=== PATIENT | female | born 1980 | race Caucasian/White ===

== ENCOUNTER 2017-12-12 09:59 | Emergency (ER) | payer MEDICAID ==
[~2017-12-12] VITALS: Ht 167.6 cm; Wt 80.0 kg
[2017-12-12] MEDS ORDERED: adenosine 3mg/ml 2ml vial IV ONE ×2 (10:15)
[2017-12-12 10:19] LABS: BASOPHILS # (AUTO) 0.1 X10'3 (0-0.2); BASOPHILS % (AUTO) 0.7 % (0-1); EOSINOPHILS % (AUTO) 0.6 % (0-6); HEMOGLOBIN 13.7 g/dl (12.0-16.0); LYMPHOCYTES # (AUTO) 3.4 X10'3 (1.1-4.8); LYMPHOCYTES % (AUTO) 43.7 % (21-51); MEAN CORPUSCULAR HEMOGLOBIN 30.8 PG (27.0-31.0); MEAN CORPUSCULAR HGB CONC 34.3 % (33.0-36.5); MEAN CORPUSCULAR VOLUME 89.6 FL (78-98); MONOCYTES # (AUTO) 0.6 X10'3 (0-0.9); MONOCYTES % (AUTO) 7.2 % (2-12); NEUTROPHILS # (AUTO) 3.7 X10'3 (1.8-7.7); NEUTROPHILS % (AUTO) 47.8 % (42-75); PLATELET COUNT 420 X10'3 (140-440); RED BLOOD COUNT 4.46 X10'6 (4.20-5.60); RED CELL DISTRIBUTION WIDTH 15.1 % (11.5-14.5); WHITE BLOOD COUNT 7.8 X10'3 (4.5-11.0)
[2017-12-12] MEDS ORDERED: proCHLORperazine 10 MG/2 ml inj IV PRN (10:25)
[2017-12-12] MEDS ORDERED: LORazepam 2 mg/ml vial IV ONE (10:25)
[2017-12-12 10:29] LABS: PARTIAL THROMBOPLASTIN TIME 23 SECONDS (22-32)
[2017-12-12 10:34] LABS: ALANINE AMINOTRANSFERASE 163 U/L (12-78); ALBUMIN 3.7 G/DL (3.4-5.0); ALBUMIN/GLOBULIN RATIO 0.8 (1.1-1.5); ALKALINE PHOSPHATASE 161 IU/L (46-116); ANION GAP 14 (8-16); ASPARTATE AMINO TRANSFERASE 183 U/L (10-37); BILIRUBIN,TOTAL 0.2 MG/DL (0.1-1.0); BLOOD UREA NITROGEN 10 MG/DL (7-18); CALCIUM 8.5 MG/DL (8.5-10.1); CHLORIDE 104 MMOL/L (99-107); CREATININE 0.91 MG/DL (0.40-0.90); GLUCOSE 162 MG/DL (70-104); POTASSIUM 3.2 MMOL/L (3.5-5.1); SODIUM 144 MMOL/L (135-145); TOTAL CARBON DIOXIDE 25.9 MMOL/L (24-32); TOTAL PROTEIN 8.1 G/DL (6.4-8.2); eGFR 70 ML/MIN
[2017-12-12] MEDS ORDERED: normal saline 1000ML IV soln IVB ONE (10:45)
[2017-12-12 12:48] VITALS: BP 141/91
== END 2017-12-12 15:01 | disposition home or self-care (01) ==
LOC: ER 09:59
DX: I47.1 Supraventricular tachycardia (principal); F15.10 Other stimulant abuse, uncomplicated
CPT/HCPCS: 36415; 71045; 80053; 84484; 85025; 85610; 85730; 92960; 93005; 96361; 96374; 96375; 99285; J0153; J2060; J7030

== ENCOUNTER 2018-02-11 14:35 | Emergency (ER) | payer MEDICAID ==
[~2018-02-11] VITALS: Ht 167.6 cm; Wt 82.2 kg
[2018-02-11] MEDS ORDERED: adenosine 3mg/ml 2ml vial IV ONE (14:45)
[2018-02-11 15:11] LABS: BASOPHILS % (AUTO) 0.4 % (0-1); EOSINOPHILS # (AUTO) 0.1 X10'3 (0-0.9); EOSINOPHILS % (AUTO) 1.4 % (0-6); HEMATOCRIT 44.8 % (35.0-45.0); HEMOGLOBIN 15.1 g/dl (12.0-16.0); LYMPHOCYTES # (AUTO) 4.5 X10'3 (1.1-4.8); MEAN CORPUSCULAR HEMOGLOBIN 30.4 PG (27.0-31.0); MEAN CORPUSCULAR HGB CONC 33.8 % (33.0-36.5); MEAN CORPUSCULAR VOLUME 90.1 FL (78-98); MEAN PLATELET VOLUME 7.5 FL (7.4-10.4); MONOCYTES # (AUTO) 0.7 X10'3 (0-0.9); MONOCYTES % (AUTO) 6.7 % (2-12); NEUTROPHILS # (AUTO) 5.3 X10'3 (1.8-7.7); NEUTROPHILS % (AUTO) 49.5 % (42-75); PLATELET COUNT 525 X10'3 (140-440); RED BLOOD COUNT 4.97 X10'6 (4.20-5.60); RED CELL DISTRIBUTION WIDTH 15.6 % (11.5-14.5); WHITE BLOOD COUNT 10.6 X10'3 (4.5-11.0)
[2018-02-11] MEDS: metoprolol tartrate 1mg/ml inj IV ONE ×2 (15:18→15:28)
[2018-02-11] MEDS ORDERED: METO-539 PO (15:27)
[2018-02-11 15:29] LABS: ALANINE AMINOTRANSFERASE 124 U/L (12-78); ALBUMIN 3.8 G/DL (3.4-5.0); ALBUMIN/GLOBULIN RATIO 0.8 (1.1-1.5); ALKALINE PHOSPHATASE 133 IU/L (46-116); ANION GAP 18 (8-16); BILIRUBIN,TOTAL 0.4 MG/DL (0.1-1.0); BLOOD UREA NITROGEN 14 MG/DL (7-18); BUN/CREATININE RATIO 14.3 (6.6-38.0); CALCIUM 8.6 MG/DL (8.5-10.1); CHLORIDE 104 MMOL/L (99-107); CREATININE 0.98 MG/DL (0.40-0.90); GLUCOSE 163 MG/DL (70-104); SODIUM 141 MMOL/L (135-145); TOTAL CARBON DIOXIDE 18.6 MMOL/L (24-32); TOTAL PROTEIN 8.6 G/DL (6.4-8.2); eGFR 65 ML/MIN
[2018-02-11 15:34] LABS: ASPARTATE AMINO TRANSFERASE 112 U/L (10-37); POTASSIUM 4.1 MMOL/L (3.5-5.1)
[2018-02-11 15:56] LABS: PARTIAL THROMBOPLASTIN TIME 23 SECONDS (22-32); PROTHROMBIN TIME 10.1 SECONDS (9.0-12.0)
[2018-02-11 16:16] VITALS: BP 124/76
== END 2018-02-11 16:19 | disposition home or self-care (01) ==
LOC: ER 14:36
DX: I47.1 Supraventricular tachycardia (principal); R73.9 Hyperglycemia, unspecified; R79.89 Other specified abnormal findings of blood chemistry; F15.90 Other stimulant use, unspecified, uncomplicated; F17.200 Nicotine dependence, unspecified, uncomplicated; Z88.5 Allergy status to narcotic agent; Z79.899 Other long term (current) drug therapy
CPT/HCPCS: 36415; 71045; 80053; 84484; 85025; 85610; 85730; 93005; 96374; 96375; 99285; J0153; J3490; J7030

== ENCOUNTER 2018-05-02 18:01 | Emergency (ER) | payer MEDICAID ==
[~2018-05-02] VITALS: Ht 167.6 cm; Wt 9.0 kg
[~2018-05-02 18:01] MED LIST: NO HOME MEDS; adenosine 3mg/ml 2ml vial IV ONE
[2018-05-02 18:23] LABS: BASOPHILS % (AUTO) 0.3 % (0-1); EOSINOPHILS # (AUTO) 0.1 X10'3 (0-0.9); EOSINOPHILS % (AUTO) 1.3 % (0-6); HEMATOCRIT 45.3 % (35.0-45.0); HEMOGLOBIN 15.2 g/dl (12.0-16.0); LYMPHOCYTES % (AUTO) 45.4 % (21-51); MEAN CORPUSCULAR HEMOGLOBIN 30.9 PG (27.0-31.0); MEAN CORPUSCULAR HGB CONC 33.6 % (33.0-36.5); MEAN CORPUSCULAR VOLUME 92.2 FL (78-98); MEAN PLATELET VOLUME 7.4 FL (7.4-10.4); MONOCYTES # (AUTO) 0.8 X10'3 (0-0.9); MONOCYTES % (AUTO) 8.8 % (2-12); NEUTROPHILS # (AUTO) 3.9 X10'3 (1.8-7.7); NEUTROPHILS % (AUTO) 44.2 % (42-75); PLATELET COUNT 549 X10'3 (140-440); RED BLOOD COUNT 4.91 X10'6 (4.20-5.60); RED CELL DISTRIBUTION WIDTH 13.6 % (11.5-14.5); WHITE BLOOD COUNT 8.8 X10'3 (4.5-11.0)
[2018-05-02] MEDS ORDERED: adenosine 3mg/ml 2ml vial IV ONE (18:25)
[2018-05-02 18:34] LABS: INR 0.9 INR; PARTIAL THROMBOPLASTIN TIME 23 SECONDS (22-32); PROTHROMBIN TIME 9.7 SECONDS (9.0-12.0)
[2018-05-02 18:37] LABS: ALANINE AMINOTRANSFERASE 242 U/L (12-78); ALBUMIN 4.2 G/DL (3.4-5.0); ALBUMIN/GLOBULIN RATIO 0.9 (1.1-1.5); ALKALINE PHOSPHATASE 162 IU/L (46-116); ANION GAP 14 (8-16); ASPARTATE AMINO TRANSFERASE 199 U/L (10-37); BILIRUBIN,TOTAL 0.3 MG/DL (0.1-1.0); BLOOD UREA NITROGEN 9 MG/DL (7-18); BUN/CREATININE RATIO 8.8 (6.6-38.0); CALCIUM 9.6 MG/DL (8.5-10.1); CHLORIDE 106 MMOL/L (99-107); CREATININE 1.02 MG/DL (0.40-0.90); GLUCOSE 190 MG/DL (70-104); POTASSIUM 3.4 MMOL/L (3.5-5.1); SODIUM 146 MMOL/L (135-145); TOTAL PROTEIN 8.8 G/DL (6.4-8.2); eGFR 62 ML/MIN
[2018-05-02] MEDS ORDERED: metoprolol tartrate 1mg/ml inj IV ONE (18:55)
[2018-05-02] MEDS ORDERED: normal saline 1000ML IV soln IVB ONE (19:10)
[2018-05-02 19:27] LABS: URINE AMPHETAMINE SCREEN POSITIVE (Neg); URINE BARBITUATE SCREEN NEGATIVE (Neg); URINE BENZODIAZEPINES SCREEN NEGATIVE (Neg); URINE CANNABINOID SCREEN NEGATIVE (Neg); URINE COCAINE SCREEN NEGATIVE (Neg); URINE METHADONE SCREEN NEGATIVE (Neg); URINE OPIATE SCREEN NEGATIVE (Neg); URINE PHENCYCLIDINE SCREEN NEGATIVE (Neg)
[2018-05-02] MEDS ORDERED: PROP10TA10 PO (20:05)
[2018-05-02] MEDS ORDERED: potassium Cl 20 mEq SR tablet PO ONE (20:05)
[2018-05-02 20:40] VITALS: BP 123/80
== END 2018-05-02 20:42 | disposition home or self-care (01) ==
LOC: MERGE 18:02 → ER 18:02
DX: I47.1 Supraventricular tachycardia (principal); J45.909 Unspecified asthma, uncomplicated; F15.90 Other stimulant use, unspecified, uncomplicated; Z90.49 Acquired absence of other specified parts of digestive tract; Z88.5 Allergy status to narcotic agent; Z79.899 Other long term (current) drug therapy
CPT/HCPCS: 36415; 71045; 80053; 80305; 84484; 85025; 85610; 85730; 93005; 96361; 96374; 96375; 99285; J3490; J7030; J0153

== ENCOUNTER 2018-11-11 19:42 | Emergency (ER) | payer MEDICAID ==
[~2018-11-11] VITALS: Ht 172.7 cm; Wt 82.0 kg
[~2018-11-11 19:42] MED LIST changes: +0.9 % SODIUM CHLORIDE 10 ML VIAL ONE; -adenosine 3mg/ml 2ml vial IV ONE; +naloxone 0.4 mg/ml inj ONE
[2018-11-11] MEDS ORDERED: naloxone 2mg/2ml inj IV STA (19:47)
[2018-11-11] MEDS ORDERED: normal saline 1000ml 1,000 ML IV ONE (19:50)
[2018-11-11] MEDS ORDERED: normal saline 1000ML IV soln IVB ONE (19:55)
[2018-11-11] MEDS ORDERED: naloxone 2mg/2ml inj IV ONE (19:55)
[2018-11-11 20:23] LABS: BASOPHILS % (AUTO) 0.5 % (0-1); EOSINOPHILS # (AUTO) 0.1 X10'3 (0-0.9); EOSINOPHILS % (AUTO) 1.8 % (0-6); LYMPHOCYTES # (AUTO) 2.6 X10'3 (1.1-4.8); LYMPHOCYTES % (AUTO) 45.1 % (21-51); MEAN CORPUSCULAR HEMOGLOBIN 30.4 PG (27.0-31.0); MEAN CORPUSCULAR HGB CONC 33.4 g/dL (33.0-36.5); MEAN CORPUSCULAR VOLUME 90.8 FL (78-98); MEAN PLATELET VOLUME 7.3 FL (7.4-10.4); MONOCYTES # (AUTO) 0.4 X10'3 (0-0.9); MONOCYTES % (AUTO) 7.6 % (2-12); NEUTROPHILS # (AUTO) 2.5 X10'3 (1.8-7.7); PLATELET COUNT 286 X10'3 (140-440); RED BLOOD COUNT 3.96 X10'6 (4.20-5.60); RED CELL DISTRIBUTION WIDTH 14.1 % (11.5-14.5); WHITE BLOOD COUNT 5.7 X10'3 (4.5-11.0)
[2018-11-11 20:28] LABS: CLARITY,URINE CLEAR (Clear); COLOR,URINE YELLOW (Yellow); GLUCOSE, URINE 500 mg/dl (Neg); KETONES,URINE NEGATIVE (Neg); LEUKOCYTE ESTERASE ,URINE NEGATIVE (Neg); NITRITES, URINE NEGATIVE (Neg); OCCULT BLOOD,URINE NEGATIVE (Neg); PROTEIN,URINE NEGATIVE (Neg); UROBILINOGEN,URINE 0.2 E.U/dL (0.2-1.0)
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
--- NOTE | 2018-11-11 20:33 | NUR ---
DR ZARAGOZAFS IN ROOM AND AMMONIA BROKE UNDER NOSE AND PATIENT WOKE UP. PATIENT ADMITS TO DRINKING TODAY BUT STATES THAT SHE QUIT DRUGS LAST WEEK. STATES THAT SHE LAST SNORTED CRANK WHEN [place]. SHE STATES THAT SHE HAS BEEN OFF METH SINCE STAYING AT HER PARENTS HOUSE.
[2018-11-11 20:36] LABS: PARTIAL THROMBOPLASTIN TIME < 20 SECONDS (22-32); PROTHROMBIN TIME 10.1 SECONDS (9.0-12.0)
[2018-11-11 20:39] LABS: ALANINE AMINOTRANSFERASE 179 U/L (12-78); ALBUMIN 3.4 G/DL (3.4-5.0); ALBUMIN/GLOBULIN RATIO 0.9 (1.1-1.5); ALKALINE PHOSPHATASE 178 IU/L (46-116); ANION GAP 16 (8-16); ASPARTATE AMINO TRANSFERASE 173 U/L (10-37); BILIRUBIN,TOTAL 0.2 MG/DL (0.1-1.0); BLOOD UREA NITROGEN 5 MG/DL (7-18); BUN/CREATININE RATIO 6.7 (6.6-38.0); CALCIUM 8.4 MG/DL (8.5-10.1); CHLORIDE 103 MMOL/L (99-107); CREATININE 0.75 MG/DL (0.40-0.90); ETHANOL 0.275 GM/DL (0.0-0.010); GLUCOSE 274 MG/DL (70-104); POTASSIUM 3.4 MMOL/L (3.5-5.1); SODIUM 139 MMOL/L (135-145); TOTAL CARBON DIOXIDE 20.3 MMOL/L (24-32); TOTAL PROTEIN 7.4 G/DL (6.4-8.2); eGFR 88 ML/MIN
[2018-11-11 20:40] LABS: URINE AMPHETAMINE SCREEN NEGATIVE (Neg); URINE BARBITUATE SCREEN NEGATIVE (Neg); URINE BENZODIAZEPINES SCREEN NEGATIVE (Neg); URINE CANNABINOID SCREEN NEGATIVE (Neg); URINE COCAINE SCREEN NEGATIVE (Neg); URINE METHADONE SCREEN NEGATIVE (Neg); URINE OPIATE SCREEN NEGATIVE (Neg); URINE PHENCYCLIDINE SCREEN NEGATIVE (Neg)
[2018-11-11 20:41] LABS: UA COLLECTION TYPE CLN CATCH MIDSTREAM
--- NOTE | 2018-11-11 20:45 | NUR ---
PATIENT AXOX4 SHANNEN, DENIES PAIN
[2018-11-11 21:00] VITALS: BP 139/77
== END 2018-11-11 21:35 | disposition home or self-care (01) ==
LOC: ER 19:42
DX: F10.129 Alcohol abuse with intoxication, unspecified (principal); F15.90 Other stimulant use, unspecified, uncomplicated; Z88.5 Allergy status to narcotic agent; Y90.9 Presence of alcohol in blood, level not specified
CPT/HCPCS: 36415; 71045; 80053; 80305; 80320; 81003; 82140; 82948; 85025; 85610; 85730; 93005; 96374; 99284; J2310; J7030

== ENCOUNTER 2019-04-19 15:25 | Emergency (ER) | payer MEDICAID ==
[~2019-04-19] VITALS: Ht 167.6 cm; Wt 90.9 kg
[~2019-04-19 15:25] MED LIST changes: -0.9 % SODIUM CHLORIDE 10 ML VIAL ONE; -naloxone 0.4 mg/ml inj ONE
[2019-04-19] MEDS ORDERED: adenosine 3mg/ml 2ml vial IV ONE (15:35)
[2019-04-19] MEDS ORDERED: LORazepam 2 mg/ml vial IV ONE (15:50)
[2019-04-19 15:53] LABS: BASOPHILS % (AUTO) 0.6 % (0-1); EOSINOPHILS # (AUTO) 0.1 X10'3 (0-0.9); HEMOGLOBIN 13.1 g/dl (12.0-16.0); LYMPHOCYTES # (AUTO) 2.6 X10'3 (1.1-4.8); MEAN CORPUSCULAR HEMOGLOBIN 28.7 PG (27.0-31.0); MEAN CORPUSCULAR HGB CONC 32.6 g/dL (33.0-36.5); MEAN PLATELET VOLUME 7.3 FL (7.4-10.4); MONOCYTES # (AUTO) 0.5 X10'3 (0-0.9); MONOCYTES % (AUTO) 7.7 % (2-12); NEUTROPHILS # (AUTO) 3.2 X10'3 (1.8-7.7); NEUTROPHILS % (AUTO) 49.7 % (42-75); PLATELET COUNT 362 X10'3 (140-440); RED BLOOD COUNT 4.55 X10'6 (4.20-5.60); RED CELL DISTRIBUTION WIDTH 16.6 % (11.5-14.5); WHITE BLOOD COUNT 6.4 X10'3 (4.5-11.0)
[2019-04-19 16:13] LABS: ALANINE AMINOTRANSFERASE 352 U/L (12-78); ALBUMIN 4.1 G/DL (3.4-5.0); ALBUMIN/GLOBULIN RATIO 0.8 (1.1-1.5); ALKALINE PHOSPHATASE 221 IU/L (46-116); ANION GAP 18 (8-16); ASPARTATE AMINO TRANSFERASE 344 U/L (10-37); BILIRUBIN,TOTAL 0.6 MG/DL (0.1-1.0); BLOOD UREA NITROGEN 4 MG/DL (7-18); BUN/CREATININE RATIO 4.1 (6.6-38.0); CALCIUM 9.4 MG/DL (8.5-10.1); CHLORIDE 95 MMOL/L (99-107); CREATININE 0.97 MG/DL (0.40-0.90); MAGNESIUM 2.2 MG/DL (1.5-2.4); POTASSIUM 3.1 MMOL/L (3.5-5.1); SODIUM 137 MMOL/L (135-145); TOTAL CARBON DIOXIDE 23.8 MMOL/L (24-32); TOTAL PROTEIN 9.2 G/DL (6.4-8.2); eGFR 65 ML/MIN
[2019-04-19 16:14] LABS: GLUCOSE 563 MG/DL (70-104)
[2019-04-19] MEDS ORDERED: normal saline 1000ML IV soln IVB ONE (16:20)
[2019-04-19] MEDS ORDERED: metoprolol tartrate 1mg/ml inj IV ONE (17:30)
[2019-04-19 17:57] VITALS: BP 124/74
== END 2019-04-19 17:58 | disposition home or self-care (01) ==
LOC: EDBD → ER 15:26
DX: I47.1 Supraventricular tachycardia (principal); F15.10 Other stimulant abuse, uncomplicated; E87.6 Hypokalemia; E86.0 Dehydration; R42 Dizziness and giddiness; R73.9 Hyperglycemia, unspecified; F10.99 Alcohol use, unspecified with unspecified alcohol-induced disorder; Z88.5 Allergy status to narcotic agent; Y90.9 Presence of alcohol in blood, level not specified
CPT/HCPCS: 36415; 71045; 80053; 83735; 83880; 84484; 85025; 93005; 96374; 96375; 99291; J0153; J2060; J7030; J3490

== ENCOUNTER 2019-05-09 18:09 | Inpatient (IN) | payer MEDICAID ==
[~2019-05-09] VITALS: Ht 167.6 cm; Wt 98.0 kg
[2019-05-09] MEDS ORDERED: normal saline 1000ML IV soln IVB ONE (18:25)
--- NOTE | 2019-05-09 18:47 | NUR ---
Patient asleep, can be woken up but it is difficult. Vitals are stable, patient O2 sat 89 on RA, place NC @ 1L patient O2 sat 94% at this time
[2019-05-09 18:52] LABS: BASOPHILS % (AUTO) 0.4 % (0-1); EOSINOPHILS # (AUTO) 0.1 X10'3 (0-0.9); EOSINOPHILS % (AUTO) 1.2 % (0-6); HEMATOCRIT 34.4 % (35.0-45.0); HEMOGLOBIN 11.3 g/dl (12.0-16.0); LYMPHOCYTES # (AUTO) 2.7 X10'3 (1.1-4.8); LYMPHOCYTES % (AUTO) 37.8 % (21-51); MEAN CORPUSCULAR HEMOGLOBIN 28.7 PG (27.0-31.0); MEAN CORPUSCULAR HGB CONC 32.9 g/dL (33.0-36.5); MEAN CORPUSCULAR VOLUME 87.3 FL (78-98); MEAN PLATELET VOLUME 6.8 FL (7.4-10.4); MONOCYTES # (AUTO) 0.5 X10'3 (0-0.9); MONOCYTES % (AUTO) 6.3 % (2-12); NEUTROPHILS # (AUTO) 3.9 X10'3 (1.8-7.7); NEUTROPHILS % (AUTO) 54.3 % (42-75); PLATELET COUNT 355 X10'3 (140-440); RED BLOOD COUNT 3.94 X10'6 (4.20-5.60); WHITE BLOOD COUNT 7.1 X10'3 (4.5-11.0)
[2019-05-09 19:02] LABS: ALANINE AMINOTRANSFERASE 301 U/L (12-78); ALBUMIN 3.9 G/DL (3.4-5.0); ALBUMIN/GLOBULIN RATIO 0.8 (1.1-1.5); ALKALINE PHOSPHATASE 243 IU/L (46-116); ANION GAP 20 (8-16); ASPARTATE AMINO TRANSFERASE 373 U/L (10-37); BILIRUBIN,TOTAL 0.6 MG/DL (0.1-1.0); BLOOD UREA NITROGEN 4 MG/DL (7-18); CALCIUM 8.9 MG/DL (8.5-10.1); CHLORIDE 94 MMOL/L (99-107); SODIUM 135 MMOL/L (135-145); TOTAL PROTEIN 9.1 G/DL (6.4-8.2); eGFR 81 ML/MIN
[2019-05-09 19:26] LABS: ETHANOL 0.312 GM/DL (0.0-0.010)
[2019-05-09 19:29] LABS: GLUCOSE 586 MG/DL (70-104); POTASSIUM 2.9 MMOL/L (3.5-5.1)
[2019-05-09] MEDS ORDERED: potassium Cl 10 mEq/100mL bag IV ONE (20:00)
[2019-05-09] MEDS ORDERED: ringers solution, lactated 1000ml IV soln IV ONE (20:00)
[2019-05-09] MEDS ORDERED: magnesium 2GM in 50ml NS 50 ML IV ONE (20:00)
[2019-05-09 20:03] LABS: URINE AMPHETAMINE SCREEN NEGATIVE (Neg); URINE BARBITUATE SCREEN NEGATIVE (Neg); URINE BENZODIAZEPINES SCREEN NEGATIVE (Neg); URINE CANNABINOID SCREEN NEGATIVE (Neg); URINE COCAINE SCREEN NEGATIVE (Neg); URINE METHADONE SCREEN NEGATIVE (Neg); URINE OPIATE SCREEN NEGATIVE (Neg); URINE PHENCYCLIDINE SCREEN NEGATIVE (Neg)
[2019-05-09 20:18] LABS: MAGNESIUM 1.9 MG/DL (1.5-2.4)
[2019-05-09] MEDS ORDERED: acetaminophen 325mg tablet PO PRN (22:10)
[2019-05-09] MEDS ORDERED: magnesium hydroxide 30ml (MOM) UD suspension PO PRN (22:10)
[2019-05-09] MEDS ORDERED: mag hydrox/Alum hydrox/simeth 30ml oral suspension PO PRN (22:10)
[2019-05-09] MEDS ORDERED: thiamine inj. 100 MG in normal saline 100ml IV soln 100 ML IV ONE (22:15)
[2019-05-09] MEDS ORDERED: thiamine 100mg/ml 2ml inj. IV ONE (22:20)
--- NOTE | 2019-05-09 23:15 | NUR ---
Patient in room [facility]ILY[facility] 356. I have received report from Jose SANTOS and had the opportunity to ask questions and assume patient care. Patient arrived safely on the unit in the wheelchair and transferred herself to be. She is alert and oriented and is resting with no distress.
[2019-05-09] MEDS: gabapentin 100mg capsule PO SCH (23:45)
[2019-05-09] MEDS: pantoprazole 40 MG vial IV SCH (23:45)
[2019-05-09] MEDS: normal saline 1000ml 1,000 ML IV SCH (23:46)
[2019-05-10] MEDS ORDERED: dextrose 50%-water 50ml dispensing syringe IV PRN ×2 (00:20)
[2019-05-10] MEDS ORDERED: glucagon, human recombinant 1mg kit SUBCUT PRN (00:20)
[2019-05-10] MEDS ORDERED: MESSAGE TO PHARMACY PO ONE (00:20)
[2019-05-10] MEDS ORDERED: dextrose ORAL solution 15 GM/59 ML bottle PO PRN ×2 (00:20)
[2019-05-10] MEDS: insulin Lispro (HumaLOG) vial - multi-dose SQ SCH ×5 (01:40→21:06)
[2019-05-10 06:09] LABS: BASOPHILS % (AUTO) 0.5 % (0-1); EOSINOPHILS % (AUTO) 1.1 % (0-6); HEMATOCRIT 28.7 % (35.0-45.0); HEMOGLOBIN 9.5 g/dl (12.0-16.0); LYMPHOCYTES % (AUTO) 36.6 % (21-51); MEAN CORPUSCULAR HEMOGLOBIN 28.4 PG (27.0-31.0); MEAN CORPUSCULAR HGB CONC 32.9 g/dL (33.0-36.5); MEAN CORPUSCULAR VOLUME 86.1 FL (78-98); MEAN PLATELET VOLUME 6.9 FL (7.4-10.4); MONOCYTES # (AUTO) 0.2 X10'3 (0-0.9); MONOCYTES % (AUTO) 7.7 % (2-12); NEUTROPHILS # (AUTO) 1.5 X10'3 (1.8-7.7); NEUTROPHILS % (AUTO) 54.1 % (42-75); PLATELET COUNT 221 X10'3 (140-440); RED BLOOD COUNT 3.34 X10'6 (4.20-5.60); RED CELL DISTRIBUTION WIDTH 16.1 % (11.5-14.5); WHITE BLOOD COUNT 2.9 X10'3 (4.5-11.0)
--- NOTE | 2019-05-10 06:22 | NUR ---
Problems reprioritized. Patient report given, questions answered & plan of care reviewed with Evi SANTOS.
[2019-05-10 06:28] LABS: ALANINE AMINOTRANSFERASE 222 U/L (12-78); ALBUMIN 3.2 G/DL (3.4-5.0); ALBUMIN/GLOBULIN RATIO 0.8 (1.1-1.5); ALKALINE PHOSPHATASE 189 IU/L (46-116); AMYLASE 31 U/L (25-115); ANION GAP 12 (8-16); ASPARTATE AMINO TRANSFERASE 264 U/L (10-37); BILIRUBIN,TOTAL 0.5 MG/DL (0.1-1.0); BLOOD UREA NITROGEN 2 MG/DL (7-18); BUN/CREATININE RATIO 3.4 (6.6-38.0); CALCIUM 7.6 MG/DL (8.5-10.1); CHLORIDE 101 MMOL/L (99-107); CREATININE 0.58 MG/DL (0.40-0.90); GLUCOSE 257 MG/DL (70-104); LIPASE 75 U/L (73-393); MAGNESIUM 1.5 MG/DL (1.5-2.4); SODIUM 139 MMOL/L (135-145); TOTAL CARBON DIOXIDE 26.1 MMOL/L (24-32); TOTAL PROTEIN 7.4 G/DL (6.4-8.2); eGFR > 90 ML/MIN
[2019-05-10 06:33] LABS: POTASSIUM 2.9 MMOL/L (3.5-5.1)
--- NOTE | 2019-05-10 06:33 | NUR ---
Patient in room [facility] 356. I have received report from Katina and had the opportunity to ask questions and assume patient care.
[2019-05-10 06:50] LABS: TOTAL CELLS COUNTED 100
[2019-05-10 06:54] LABS: ANISOCYTOSIS 1+; PLATELET ESTIMATE NORMAL; POLYCHROMASIA FEW
[2019-05-10 06:55] LABS: TEAR DROP CELLS FEW
[2019-05-10 06:56] LABS: STOMATOCYTES 1+
[2019-05-10 07:00] VITALS: BP 146/92
[2019-05-10] MEDS: thiamine inj. 100 MG, folic acid inj. 2 MG in normal saline 100ml IV soln 100.0 ML IV SCH (08:00)
[2019-05-10] MEDS: pantoprazole 40 MG vial IV SCH (08:00)
[2019-05-10] MEDS: normal saline 1000ml 1,000 ML IV SCH ×2 (08:09→17:00)
[2019-05-10] MEDS ORDERED: potassium CL 10mEq/100ml bag 100 ML IV PRN (08:10)
[2019-05-10] MEDS ORDERED: potassium Cl 20 mEq SR tablet PO PRN (08:10)
[2019-05-10] MEDS ORDERED: magnesium Cl slow-release 64mg tablet PO PRN (08:10)
[2019-05-10] MEDS ORDERED: magnesium 4gm in 100ml NS 100 ML IV PRN (08:10)
[2019-05-10] MEDS ORDERED: magnesium 2GM in 50ml NS 50 ML IV PRN (08:10)
[2019-05-10] MEDS: gabapentin 100mg capsule PO SCH ×3 (08:57→23:44)
[2019-05-10] MEDS ORDERED: FLU VACC QS2019-20 36MOS UP/PF 60 MCG/0.5 ML SYRINGE IMVAC ONE (10:00)
[2019-05-10] MEDS: potassium Cl 20 mEq SR tablet PO PRN ×2 (10:20→13:34)
[2019-05-10] MEDS: MVI, adult No.4 with vit. K 10 ML in dextrose 5% water 500ml 500 ML IV SCH ×2 (10:35)
[2019-05-10 11:00] VITALS: BP 115/70
[2019-05-10 17:15] LABS: MAGNESIUM 1.7 MG/DL (1.5-2.4); POTASSIUM 3.4 MMOL/L (3.5-5.1)
--- NOTE | 2019-05-10 17:24 | NUR ---
Malnutrition/DM Consults: Pt admit w/ etoh intoxication; etoh 0.312 and GLU 586 on admit. Hx prior meth use none currently per EMR. DX etoh hepatitis per MD. A1C 10.1 on admit; pt has no prior DM hx. Per RN; unsure if new DM vs etoh-related since drinks plenty of sugary etoh drinks per MD. Pt seen by RD and reports MD discussed GLU w/ her but not official DM DX. Cannot provide DM ed until pt receives official DM DX. RD did provide contact information and educated pt on thiamin/MVI needs r/t etoh use. Pt receiving banana bag for etoh on protocol and does report some tingling in fingers as well. PO 50% avg clear liquids now advanced to carb controlled diet starting at dinner tonight. LBM 05/07. Pt has no visible signs of muscle/fat wasting, normal strength, and current wt has no recorded method. At this time pt does not meet malnutrition criteria. Will monitor for official DM DX and new DM ed needs as appropriate. Rec: 1. continue carb controlled diet 2. monitor for ONS needs pending PO 3. DM ed following official DM DX as prior to d/c 4. thiamin/folic/MVI given etoh hx 5. wt per rx Addendum: 05/10/19 at [address] Amended: Links added.
--- NOTE | 2019-05-10 18:13 | NUR ---
Problems reprioritized. Patient report given, questions answered & plan of care reviewed with DANIELLE Mauricio.
[2019-05-10 18:50] VITALS: BP 148/89
[2019-05-10] MEDS ORDERED: LORazepam 1 MG tablet PO ONE (21:00)
[2019-05-10] MEDS: LORazepam 2 mg/ml vial IV PRN (23:44)
[2019-05-11] VITALS: BP 123/75
[2019-05-11] MEDS: normal saline 1000ml 1,000 ML IV SCH ×3 (04:47→23:50)
[2019-05-11 06:14] LABS: BASOPHILS % (AUTO) 0.5 % (0-1); EOSINOPHILS % (AUTO) 1.3 % (0-6); HEMATOCRIT 27.5 % (35.0-45.0); HEMOGLOBIN 9.1 g/dl (12.0-16.0); LYMPHOCYTES # (AUTO) 0.8 X10'3 (1.1-4.8); LYMPHOCYTES % (AUTO) 33.7 % (21-51); MEAN CORPUSCULAR HEMOGLOBIN 28.9 PG (27.0-31.0); MEAN CORPUSCULAR HGB CONC 33.2 g/dL (33.0-36.5); MEAN CORPUSCULAR VOLUME 87.2 FL (78-98); MONOCYTES # (AUTO) 0.2 X10'3 (0-0.9); MONOCYTES % (AUTO) 7.8 % (2-12); NEUTROPHILS # (AUTO) 1.4 X10'3 (1.8-7.7); NEUTROPHILS % (AUTO) 56.7 % (42-75); PLATELET COUNT 200 X10'3 (140-440); RED BLOOD COUNT 3.15 X10'6 (4.20-5.60); RED CELL DISTRIBUTION WIDTH 16.2 % (11.5-14.5); WHITE BLOOD COUNT 2.5 X10'3 (4.5-11.0)
--- NOTE | 2019-05-11 06:30 | NUR ---
Patient in room [facility] 356. I have received report from night RN and had the opportunity to ask questions and assume patient care.
--- NOTE | 2019-05-11 06:33 | NUR ---
Problems reprioritized. Patient report given, questions answered & plan of care reviewed with Asha. Addendum: 05/11/19 at 0634 by Wild Lawrence RN Amended: Links added.
[2019-05-11 06:40] LABS: ALANINE AMINOTRANSFERASE 182 U/L (12-78); ALBUMIN 3.2 G/DL (3.4-5.0); ALBUMIN/GLOBULIN RATIO 0.8 (1.1-1.5); ALKALINE PHOSPHATASE 183 IU/L (46-116); AMYLASE 25 U/L (25-115); ANION GAP 10 (8-16); ASPARTATE AMINO TRANSFERASE 199 U/L (10-37); BILIRUBIN,TOTAL 0.8 MG/DL (0.1-1.0); BLOOD UREA NITROGEN 1 MG/DL (7-18); BUN/CREATININE RATIO 1.8 (6.6-38.0); CALCIUM 8.1 MG/DL (8.5-10.1); CHLORIDE 107 MMOL/L (99-107); CREATININE 0.57 MG/DL (0.40-0.90); GLUCOSE 200 MG/DL (70-104); LIPASE < 50 U/L (73-393); MAGNESIUM 2.2 MG/DL (1.5-2.4); POTASSIUM 3.1 MMOL/L (3.5-5.1); SODIUM 143 MMOL/L (135-145); TOTAL CARBON DIOXIDE 26.1 MMOL/L (24-32); TOTAL PROTEIN 7.3 G/DL (6.4-8.2); eGFR > 90 ML/MIN
[2019-05-11 07:10] VITALS: BP 137/86
[2019-05-11 07:17] LABS: TOTAL CELLS COUNTED 100
[2019-05-11 07:18] LABS: ANISOCYTOSIS 1+; PLATELET ESTIMATE NORMAL
[2019-05-11] MEDS: pantoprazole 40 MG vial IV SCH (08:04)
[2019-05-11] MEDS: thiamine inj. 100 MG, folic acid inj. 2 MG in normal saline 100ml IV soln 100.0 ML IV SCH (08:05)
[2019-05-11] MEDS: gabapentin 100mg capsule PO SCH ×3 (08:15→23:50)
[2019-05-11] MEDS: potassium Cl 20 mEq SR tablet PO PRN ×3 (08:15→17:08)
[2019-05-11] MEDS: MVI, adult No.4 with vit. K 10 ML in dextrose 5% water 500ml 500 ML IV SCH ×2 (08:17)
[2019-05-11] MEDS: insulin Lispro (HumaLOG) vial - multi-dose SQ SCH ×3 (08:21→19:36)
[2019-05-11 11:27] VITALS: BP 125/73
--- NOTE | 2019-05-11 11:57 | NUR ---
Student Medication Administration: For this medication-pass time frame, all medication were reviewed, dispensed, administered and documented per hospital policy by Rylie nursing education specialist.
--- NOTE | 2019-05-11 12:00 | NUR ---
Problems reprioritized. Patient report given, questions answered & plan of care reviewed with nursing students Keke and Hung.
[2019-05-11] MEDS: ondansetron/PF 4mg/2ml inj IV PRN ×2 (16:46→23:56)
[2019-05-11] MEDS: LORazepam 2 mg/ml vial IV PRN (16:46)
--- NOTE | 2019-05-11 17:13 | NUR ---
Problems reprioritized. Patient report given, questions answered & plan of care reviewed with DANIELLE Bernardo. Addendum: 05/11/19 at 1810 by Asha Ramos RN Problems reprioritized. Patient report given, questions answered & plan of care reviewed with DANIELLE Mauricio.
[2019-05-11 18:50] VITALS: BP 120/72
[2019-05-11] MEDS ORDERED: LORazepam 2 mg/ml vial IV PRN (22:15)
[2019-05-12] VITALS: BP 136/94
[2019-05-12 05:45] LABS: BASOPHILS % (AUTO) 0.8 % (0-1); EOSINOPHILS # (AUTO) 0.1 X10'3 (0-0.9); EOSINOPHILS % (AUTO) 2.5 % (0-6); HEMATOCRIT 27.1 % (35.0-45.0); LYMPHOCYTES # (AUTO) 0.9 X10'3 (1.1-4.8); LYMPHOCYTES % (AUTO) 30.7 % (21-51); MEAN CORPUSCULAR HGB CONC 33.2 g/dL (33.0-36.5); MEAN CORPUSCULAR VOLUME 87.2 FL (78-98); MEAN PLATELET VOLUME 7.1 FL (7.4-10.4); MONOCYTES # (AUTO) 0.3 X10'3 (0-0.9); MONOCYTES % (AUTO) 9.1 % (2-12); NEUTROPHILS # (AUTO) 1.7 X10'3 (1.8-7.7); NEUTROPHILS % (AUTO) 56.9 % (42-75); PLATELET COUNT 211 X10'3 (140-440); RED CELL DISTRIBUTION WIDTH 16.4 % (11.5-14.5)
--- NOTE | 2019-05-12 06:29 | NUR ---
Problems reprioritized. Patient report given, questions answered & plan of care reviewed with LUIS. Addendum: 05/12/19 at 0629 by Wild Lawrence RN Amended: Links added.
[2019-05-12 06:30] LABS: ALANINE AMINOTRANSFERASE 160 U/L (12-78); ALBUMIN 3.1 G/DL (3.4-5.0); ALBUMIN/GLOBULIN RATIO 0.8 (1.1-1.5); ALKALINE PHOSPHATASE 183 IU/L (46-116); AMYLASE 26 U/L (25-115); ANION GAP 11 (8-16); ASPARTATE AMINO TRANSFERASE 154 U/L (10-37); BILIRUBIN,TOTAL 0.7 MG/DL (0.1-1.0); BLOOD UREA NITROGEN 2 MG/DL (7-18); BUN/CREATININE RATIO 3.4 (6.6-38.0); CALCIUM 8.4 MG/DL (8.5-10.1); CHLORIDE 108 MMOL/L (99-107); CHOL/HDL RATIO 13.8 (0.00-4.99); CHOLESTEROL 275 MG/DL (0-200); CREATININE 0.59 MG/DL (0.40-0.90); GLUCOSE 153 MG/DL (70-104); HDL CHOLESTEROL 20 MG/DL (35-60); LDL CHOLESTEROL 227 MG/DL (50-100); LIPASE 55 U/L (73-393); MAGNESIUM 2.1 MG/DL (1.5-2.4); POTASSIUM 3.7 MMOL/L (3.5-5.1); SODIUM 143 MMOL/L (135-145); TOTAL CARBON DIOXIDE 23.9 MMOL/L (24-32); TOTAL PROTEIN 7.2 G/DL (6.4-8.2); TRIGLYCERIDES 200 MG/DL (20-135); eGFR > 90 ML/MIN
--- NOTE | 2019-05-12 06:30 | NUR ---
Patient in room [facility] 356. I have received report from Ganga SANTOS and had the opportunity to ask questions and assume patient care.
--- NOTE | 2019-05-12 06:40 | NUR ---
Patient in room [facility] 356. I have received report from DANIELLE THAKUR and had the opportunity to ask questions and assume patient care.
[2019-05-12 06:49] LABS: ANISOCYTOSIS 1+; PLATELET ESTIMATE NORMAL; TOTAL CELLS COUNTED 100
[2019-05-12] MEDS: pantoprazole 40mg Tablet.DR PO SCH (07:02)
[2019-05-12] MEDS: gabapentin 100mg capsule PO SCH ×2 (07:09→17:17)
[2019-05-12] MEDS: thiamine 100mg tablet PO SCH (07:09)
[2019-05-12] MEDS: folic acid 1mg tablet PO SCH (07:09)
[2019-05-12] MEDS: multivitamins, therapeutics tablet PO SCH (07:09)
[2019-05-12] MEDS: LORazepam 1 MG tablet PO PRN ×4 (07:10→19:18)
[2019-05-12 07:15] VITALS: BP_SYST 118; BP_SYST 63; BP_DIAS 63
[2019-05-12 08:17] LABS: HBSAG SCREEN Negative (Negative); HEP A AB, IGM Negative (Negative); HEP B CORE AB, IGM Negative (Negative); HEPATITIS C ANTIBODY 0.1 s/co ratio (0.0-0.9)
[2019-05-12] MEDS: insulin Lispro (HumaLOG) vial - multi-dose SQ SCH ×3 (08:30→19:28)
[2019-05-12] MEDS: normal saline 1000ml 1,000 ML IV SCH ×2 (09:53→19:18)
[2019-05-12 11:24] VITALS: BP 135/61
--- NOTE | 2019-05-12 11:52 | NUR ---
Gave care back to Ganga SANTOS
--- NOTE | 2019-05-12 11:59 | NUR ---
Student documentation: I have reviewed and agree with all interventions, assessments performed and documented by Bing, nursing home manager.
--- NOTE | 2019-05-12 11:59 | NUR ---
Student Medication Administration: For this medication-pass time frame, all medication were reviewed, dispensed, administered and documented per hospital policy by Bing assistant professor of nursing.
--- NOTE | 2019-05-12 12:26 | NUR ---
F/u: Pt aware of new DM DX at this time. Pt seen by RD for written/verbal DM ed w/ RD contact information provided. Pt reports no current diet concerns. RD encouraged to attend CDE course and contact RD both during admit or following d/c if any DM diet questions/concerns. Addendum: 05/12/19 at [address] Amended: Links added.
--- NOTE | 2019-05-12 18:42 | NUR ---
Problems reprioritized. Patient report given, questions answered & plan of care reviewed with DANIELLE BAL.
[2019-05-12] MEDS: ondansetron/PF 4mg/2ml inj IV PRN (19:18)
[2019-05-12 20:00] VITALS: BP_SYST 138; BP_SYST 151; BP_DIAS 86; BP_DIAS 90
[2019-05-13] VITALS: BP 131/86
[2019-05-13] MEDS: gabapentin 100mg capsule PO SCH ×3 (00:35→17:23)
[2019-05-13 05:03] LABS: BASOPHILS % (AUTO) 0.4 % (0-1); EOSINOPHILS # (AUTO) 0.1 X10'3 (0-0.9); EOSINOPHILS % (AUTO) 2.4 % (0-6); HEMATOCRIT 27.9 % (35.0-45.0); LYMPHOCYTES % (AUTO) 27.4 % (21-51); MEAN CORPUSCULAR HEMOGLOBIN 28.6 PG (27.0-31.0); MEAN CORPUSCULAR HGB CONC 32.2 g/dL (33.0-36.5); MEAN CORPUSCULAR VOLUME 88.8 FL (78-98); MEAN PLATELET VOLUME 7.1 FL (7.4-10.4); MONOCYTES # (AUTO) 0.4 X10'3 (0-0.9); MONOCYTES % (AUTO) 9.6 % (2-12); NEUTROPHILS # (AUTO) 2.3 X10'3 (1.8-7.7); NEUTROPHILS % (AUTO) 60.2 % (42-75); PLATELET COUNT 228 X10'3 (140-440); RED BLOOD COUNT 3.14 X10'6 (4.20-5.60); RED CELL DISTRIBUTION WIDTH 16.5 % (11.5-14.5); WHITE BLOOD COUNT 3.8 X10'3 (4.5-11.0)
[2019-05-13 05:35] LABS: ALANINE AMINOTRANSFERASE 133 U/L (12-78); ALBUMIN/GLOBULIN RATIO 0.7 (1.1-1.5); ALKALINE PHOSPHATASE 183 IU/L (46-116); AMYLASE 33 U/L (25-115); ANION GAP 10 (8-16); ASPARTATE AMINO TRANSFERASE 129 U/L (10-37); BILIRUBIN,TOTAL 0.8 MG/DL (0.1-1.0); BLOOD UREA NITROGEN 4 MG/DL (7-18); BUN/CREATININE RATIO 6.8 (6.6-38.0); CALCIUM 8.7 MG/DL (8.5-10.1); CHLORIDE 106 MMOL/L (99-107); CREATININE 0.59 MG/DL (0.40-0.90); GLUCOSE 137 MG/DL (70-104); LIPASE 71 U/L (73-393); MAGNESIUM 1.8 MG/DL (1.5-2.4); POTASSIUM 3.5 MMOL/L (3.5-5.1); SODIUM 141 MMOL/L (135-145); TOTAL CARBON DIOXIDE 25.4 MMOL/L (24-32); TOTAL PROTEIN 7.2 G/DL (6.4-8.2); eGFR > 90 ML/MIN
--- NOTE | 2019-05-13 06:07 | NUR ---
Problems reprioritized. Patient report given, questions answered & plan of care reviewed with DANIELLE Schuler.
[2019-05-13] MEDS: normal saline 1000ml 1,000 ML IV SCH ×3 (06:09→17:23)
--- NOTE | 2019-05-13 06:30 | NUR ---
Patient in room [facility] 340. I have received report from DANIELLE BAL and had the opportunity to ask questions and assume patient care.
--- NOTE | 2019-05-13 06:48 | NUR ---
Received report from Jannie Schuler RN. My nurse had already received report by the time I got on the floor, so she just gave me report on my specific patient.
[2019-05-13] MEDS: pantoprazole 40mg Tablet.DR PO SCH (07:10)
[2019-05-13] MEDS: folic acid 1mg tablet PO SCH (07:11)
[2019-05-13] MEDS: thiamine 100mg tablet PO SCH (07:12)
[2019-05-13] MEDS: LORazepam 1 MG tablet PO PRN ×3 (07:12→18:58)
[2019-05-13] MEDS: multivitamins, therapeutics tablet PO SCH (07:12)
[2019-05-13] MEDS: ondansetron/PF 4mg/2ml inj IV PRN (07:16)
[2019-05-13 07:30] VITALS: BP 143/94
[2019-05-13] MEDS: insulin Lispro (HumaLOG) vial - multi-dose SQ SCH ×3 (09:02→18:49)
[2019-05-13 10:26] VITALS: BP 140/82
[2019-05-13] MEDS ORDERED: proCHLORperazine 10 MG/2 ml inj IV PRN (11:10)
[2019-05-13 14:46] VITALS: BP 129/90
--- NOTE | 2019-05-13 18:13 | NUR ---
Problems reprioritized. Patient report given, questions answered & plan of care reviewed with DANIELLE Palmer.
--- NOTE | 2019-05-13 18:17 | NUR ---
Receieved report from Ganga SANTOS pt is awake and alert on RA, eating dinner, in no apparent distress
[2019-05-13 19:00] VITALS: BP 147/102
[2019-05-14 00:09] VITALS: BP 135/89
[2019-05-14] MEDS: gabapentin 100mg capsule PO SCH ×2 (00:40→07:43)
[2019-05-14] MEDS ORDERED: Melatonin 3mg tablet PO SCH (01:00)
[2019-05-14] MEDS: normal saline 1000ml 1,000 ML IV SCH (01:49)
[2019-05-14 05:08] LABS: BASOPHILS % (AUTO) 0.5 % (0-1); EOSINOPHILS # (AUTO) 0.1 X10'3 (0-0.9); EOSINOPHILS % (AUTO) 2.7 % (0-6); HEMATOCRIT 27.3 % (35.0-45.0); HEMOGLOBIN 9.1 g/dl (12.0-16.0); LYMPHOCYTES # (AUTO) 0.9 X10'3 (1.1-4.8); LYMPHOCYTES % (AUTO) 22.7 % (21-51); MEAN CORPUSCULAR HEMOGLOBIN 29.1 PG (27.0-31.0); MEAN CORPUSCULAR HGB CONC 33.1 g/dL (33.0-36.5); MEAN CORPUSCULAR VOLUME 87.7 FL (78-98); MEAN PLATELET VOLUME 6.8 FL (7.4-10.4); MONOCYTES # (AUTO) 0.4 X10'3 (0-0.9); MONOCYTES % (AUTO) 10.1 % (2-12); NEUTROPHILS # (AUTO) 2.5 X10'3 (1.8-7.7); PLATELET COUNT 241 X10'3 (140-440); RED BLOOD COUNT 3.11 X10'6 (4.20-5.60); RED CELL DISTRIBUTION WIDTH 16.5 % (11.5-14.5)
[2019-05-14 05:28] LABS: ALANINE AMINOTRANSFERASE 116 U/L (12-78); ALBUMIN 3.1 G/DL (3.4-5.0); ALBUMIN/GLOBULIN RATIO 0.7 (1.1-1.5); ALKALINE PHOSPHATASE 180 IU/L (46-116); AMYLASE 32 U/L (25-115); ANION GAP 9 (8-16); ASPARTATE AMINO TRANSFERASE 142 U/L (10-37); BILIRUBIN,TOTAL 0.8 MG/DL (0.1-1.0); BLOOD UREA NITROGEN 5 MG/DL (7-18); BUN/CREATININE RATIO 7.8 (6.6-38.0); CALCIUM 8.6 MG/DL (8.5-10.1); CHLORIDE 107 MMOL/L (99-107); CREATININE 0.64 MG/DL (0.40-0.90); GLUCOSE 132 MG/DL (70-104); LIPASE 78 U/L (73-393); MAGNESIUM 1.6 MG/DL (1.5-2.4); POTASSIUM 3.6 MMOL/L (3.5-5.1); SODIUM 142 MMOL/L (135-145); TOTAL CARBON DIOXIDE 26.3 MMOL/L (24-32); TOTAL PROTEIN 7.3 G/DL (6.4-8.2); eGFR > 90 ML/MIN
--- NOTE | 2019-05-14 06:22 | NUR ---
Gave report to Asha RN pt is awake and alert on RA, currently getting vital signs done today
[2019-05-14 06:51] VITALS: BP 132/90
[2019-05-14 07:10] VITALS: BP 132/90
--- NOTE | 2019-05-14 07:30 | NUR ---
Received report from DANIELLE Swan
[2019-05-14] MEDS: folic acid 1mg tablet PO SCH (07:43)
[2019-05-14] MEDS: pantoprazole 40mg Tablet.DR PO SCH (07:43)
[2019-05-14] MEDS: multivitamins, therapeutics tablet PO SCH (07:44)
[2019-05-14] MEDS: thiamine 100mg tablet PO SCH (07:44)
[2019-05-14] MEDS: insulin Lispro (HumaLOG) vial - multi-dose SQ SCH (08:33)
[2019-05-14 10:48] VITALS: BP 145/97
[2019-05-14 11:33] VITALS: BP 145/97
[2019-05-14] MEDS ORDERED: PANT40TA4 PO (11:52)
[2019-05-14] MEDS ORDERED: ONDA4TAB6 PO (11:52)
[2019-05-14] MEDS ORDERED: LANTUS SQ (11:52)
[2019-05-14] MEDS ORDERED: LORA2TAB96 PO (11:54)
--- NOTE | 2019-05-14 13:29 | NUR ---
Patient discharged home, stable and appropriate. All belongings taken from room. IV removed. Pres[facility] for new [facility] to [email or web address]. Diabetes survival skills and discharge instructions given and reviewed with patient.
--- NOTE | 2019-05-14 16:56 | NUR ---
Page sent to hospitalist. Vasquez Nettles 340B : patient discharged. she is now calling saying her insurance will not cover lantus..would you like any changes? [phone]
--- NOTE | 2019-05-14 16:56 | NUR ---
patient discharged before I was able to do an assessment or take any vitals. was able to do a blood glucose test and diabetic monitoring education. d/c IV also
--- NOTE | 2019-05-14 17:56 | NUR ---
Student documentation: I have reviewed documention by Harrison ALFARO .
--- NOTE | 2019-05-14 18:33 | NUR ---
Spoke with [facility], they will adjust the lantus to a long lasting covered by the insurance. Per Dr. Roberts orders.
== END 2019-05-14 13:31 | disposition home or self-care (01) | DRG 42 ==
LOC: EDBD 18:11 → ER 18:11 → ED HOLD 22:16 → SUR 3N 23:42
PROVIDERS: ADMIT Internal Medicine; ATTEND Internal Medicine
DX: G31.2 Degeneration of nervous system due to alcohol (principal); E87.2 Acidosis; K70.10 Alcoholic hepatitis without ascites; E11.9 Type 2 diabetes mellitus without complications; E87.6 Hypokalemia; F10.229 Alcohol dependence with intoxication, unspecified; D64.9 Anemia, unspecified; K75.81 Nonalcoholic steatohepatitis (NASH); F15.90 Other stimulant use, unspecified, uncomplicated; F32.9 Major depressive disorder, single episode, unspecified; R74.8 Abnormal levels of other serum enzymes; F10.239 Alcohol dependence with withdrawal, unspecified; Z79.4 Long term (current) use of insulin; Z90.49 Acquired absence of other specified parts of digestive tract; Z23 Encounter for immunization; Z88.5 Allergy status to narcotic agent
CPT/HCPCS: 36415; 70450; 71045; 76700; 80053; 80061; 80074; 80305; 80320; 82150; 82948; 83036; 83690; 83735; 84132; 84443; 85025; 87081; 93005; 96361; 96365; 99285; C9113; G0378; J0780; J1815; J2060; J2405; J3411; J3475; J3480; J3490; J7030; J7060; J7120; Q2037

== ENCOUNTER 2019-09-29 10:57 | Inpatient (IN) | payer MEDICAID ==
[~2019-09-29] VITALS: Ht 167.6 cm; Wt 80.0 kg
[~2019-09-29 10:57] MED LIST changes: +LORA2TAB96 PO; -NO HOME MEDS; +ONDA4TAB6 PO; +PANT40TA4 PO
[2019-09-29 11:36] LABS: BASOPHILS % (AUTO) 0.9 % (0-1); EOSINOPHILS # (AUTO) 0.1 X10'3 (0-0.9); HEMATOCRIT 37.8 % (35.0-45.0); HEMOGLOBIN 12.9 g/dl (12.0-16.0); LYMPHOCYTES # (AUTO) 1.8 X10'3 (1.1-4.8); LYMPHOCYTES % (AUTO) 31.3 % (21-51); MEAN CORPUSCULAR HEMOGLOBIN 30.5 PG (27.0-31.0); MEAN CORPUSCULAR HGB CONC 34.1 g/dL (33.0-36.5); MEAN CORPUSCULAR VOLUME 89.5 FL (78-98); MEAN PLATELET VOLUME 6.7 FL (7.4-10.4); MONOCYTES # (AUTO) 0.4 X10'3 (0-0.9); MONOCYTES % (AUTO) 6.8 % (2-12); NEUTROPHILS # (AUTO) 3.3 X10'3 (1.8-7.7); PLATELET COUNT 325 X10'3 (140-440); RED BLOOD COUNT 4.23 X10'6 (4.20-5.60); RED CELL DISTRIBUTION WIDTH 18.8 % (11.5-14.5); WHITE BLOOD COUNT 5.7 X10'3 (4.5-11.0)
[2019-09-29 11:45] LABS: ALANINE AMINOTRANSFERASE 210 U/L (12-78); ALBUMIN/GLOBULIN RATIO 0.8 (1.1-1.5); ALKALINE PHOSPHATASE 259 IU/L (46-116); AMYLASE 28 U/L (25-115); ANION GAP 13 (8-16); ASPARTATE AMINO TRANSFERASE 429 U/L (10-37); BILIRUBIN,TOTAL 1.3 MG/DL (0.1-1.0); BLOOD UREA NITROGEN 3 MG/DL (7-18); BUN/CREATININE RATIO 4.1 (6.6-38.0); CALCIUM 8.8 MG/DL (8.5-10.1); CHLORIDE 95 MMOL/L (99-107); CREATININE 0.74 MG/DL (0.40-0.90); GLUCOSE 317 MG/DL (70-104); LIPASE 71 U/L (73-393); SODIUM 137 MMOL/L (135-145); TOTAL CARBON DIOXIDE 29.2 MMOL/L (24-32); TOTAL PROTEIN 9.3 G/DL (6.4-8.2); eGFR 89 ML/MIN
[2019-09-29 11:48] LABS: POTASSIUM 2.9 MMOL/L (3.5-5.1)
[2019-09-29] MEDS ORDERED: normal saline 1000ml 1,000 ML IV ONE (12:10)
[2019-09-29] MEDS ORDERED: pantoprazole 40 MG vial IV ONE (12:10)
[2019-09-29] MEDS ORDERED: ondansetron/PF 4mg/2ml inj IV ONE ×2 (12:10→15:55)
[2019-09-29] MEDS ORDERED: fentaNYL/PF 50MCG/1 ML 2ML syringe IV ONE (12:10)
[2019-09-29] MEDS ORDERED: potassium Cl 10 mEq/100mL bag IV ONE (12:15)
[2019-09-29] MEDS ORDERED: magnesium 2GM in 50ml NS 50 ML IV ONE (12:15)
[2019-09-29 12:31] LABS: ETHANOL < 0.010 GM/DL (0.0-0.010)
[2019-09-29] MEDS: octreotide inj. 1,250 MCG in normal saline 250ml IV soln 250 ML IV SCH (12:42)
[2019-09-29] MEDS ORDERED: iohexol 300mg/ml 100ml inj. ONE (12:42)
[2019-09-29 13:03] LABS: ANISOCYTOSIS 2+; PLATELET ESTIMATE NORMAL
--- NOTE | 2019-09-29 13:37 | NUR ---
Mag ran at 2gm/hr (50ml/hr) as OKed by Dr. Laughlin
[2019-09-29 13:57] LABS: URINE HCG NEGATIVE (NEG)
[2019-09-29 14:10] LABS: CLARITY,URINE CLOUDY (Clear); COLOR,URINE YELLOW (Yellow); GLUCOSE, URINE 500 mg/dl (Neg); KETONES,URINE >=80 mg/dl (Neg); LEUKOCYTE ESTERASE ,URINE TRACE (Neg); NITRITES, URINE NEGATIVE (Neg); OCCULT BLOOD,URINE MODERATE (Neg); PROTEIN,URINE 100 mg/dl (Neg)
[2019-09-29 14:13] LABS: UA COLLECTION TYPE NON-SPECIFIED
[2019-09-29 14:25] LABS: WBC,URINE 20-30 /HPF (0-4)
[2019-09-29 14:26] LABS: BACTERIA,URINE 1+ /HPF (Neg); MUCUS STRANDS MODERATE /LPF (Neg); RBC,URINE 0-2 /HPF (0-2); SQUAMOUS EPITHELIAL CELL,UR FEW /LPF (FEW)
--- NOTE | 2019-09-29 14:38 | NUR ---
Pt. to CT
--- NOTE | 2019-09-29 14:45 | NUR ---
Pt. back from CT
[2019-09-29] MEDS: pantoprazole 40MG/NS 100ML BAG 100 ML IV SCH ×3 (15:09→19:47)
[2019-09-29] MEDS ORDERED: mag hydrox/Alum hydrox/simeth 30ml oral suspension PO PRN (17:25)
[2019-09-29] MEDS ORDERED: thiamine inj. 100 MG in normal saline 100ml IV soln 100 ML IV ONE (17:25)
[2019-09-29] MEDS ORDERED: potassium CL 10mEq/100ml bag 100 ML IV PRN ×2 (17:25)
[2019-09-29] MEDS ORDERED: magnesium 4gm in 100ml NS 100 ML IV PRN (17:25)
[2019-09-29] MEDS ORDERED: ondansetron/PF 4mg/2ml inj IV PRN (17:25)
[2019-09-29] MEDS ORDERED: MESSAGE TO PHARMACY PO ONE (17:25)
[2019-09-29] MEDS ORDERED: acetaminophen 325mg tablet PO PRN (17:25)
[2019-09-29] MEDS ORDERED: dextrose 50%-water 50ml dispensing syringe IV PRN ×2 (17:25)
[2019-09-29] MEDS ORDERED: potassium Cl 20 mEq SR tablet PO PRN (17:25)
[2019-09-29] MEDS ORDERED: magnesium hydroxide 30ml (MOM) UD suspension PO PRN (17:25)
[2019-09-29] MEDS ORDERED: glucagon, human recombinant 1mg kit SUBCUT PRN (17:25)
[2019-09-29] MEDS ORDERED: magnesium 2GM in 50ml NS 50 ML IV PRN (17:25)
[2019-09-29] MEDS ORDERED: dextrose ORAL solution 15 GM/59 ML bottle PO PRN ×2 (17:25)
[2019-09-29] MEDS ORDERED: LORazepam 2 mg/ml vial IV PRN ×2 (17:25)
[2019-09-29] MEDS ORDERED: FERR325T29 PO (17:26)
[2019-09-29] MEDS ORDERED: INSU100I31 SQ (17:26)
[2019-09-29] MEDS ORDERED: GABA600T13 PO (17:26)
[2019-09-29] MEDS ORDERED: NALT50TA PO (17:26)
[2019-09-29] MEDS ORDERED: INSU100I39 SQ (17:26)
[2019-09-29] MEDS ORDERED: HALO5TAB PO (17:26)
[2019-09-29] MEDS ORDERED: LURA60TA2 PO (17:27)
[2019-09-29] MEDS ORDERED: PANT40TA4 PO (17:32)
[2019-09-29] MEDS ORDERED: thiamine 100mg/ml 2ml inj. IV ONE (17:40)
[2019-09-29 17:58] LABS: HEMOGLOBIN A1C 9.2 % (4.5-6.2)
[2019-09-29] MEDS ORDERED: oxyCODONE IR 5mg (immed. release) tablet PO PRN ×2 (18:20→18:30)
[2019-09-29] MEDS: K and/or MAG REPLACEMENT MC SCH (20:00)
--- NOTE | 2019-09-29 20:30 | NUR ---
Patient in room ED 3. I have received report from Wilfrid SANTOS and had the opportunity to ask questions and assume patient care.
[2019-09-29 20:50] VITALS: BP 139/90
[2019-09-29] MEDS: gabapentin 300mg capsule PO SCH (21:02)
[2019-09-29] MEDS: haloperidol 5mg tablet PO SCH (21:03)
[2019-09-29] MEDS: ferrous sulfate 325mg tablet PO SCH (21:03)
[2019-09-29] MEDS: insulin Lispro (HumaLOG) vial - multi-dose SQ SCH (21:13)
[2019-09-29] MEDS: insulin glargine (Lantus) pen - multi-dose SQ SCH (21:14)
[2019-09-29 22:00] VITALS: BP 133/77
--- NOTE | 2019-09-29 22:54 | NUR ---
Patient arrived to the floor at 2049. Vital signs stable. Skin check complete. Darting complete. Placed on tele. MRSA swab collected. Oriented patient to room, vital signs times, meal times, medication times, and unit policies.
[2019-09-30] MEDS: pantoprazole 40MG/NS 100ML BAG 100 ML IV SCH ×5 (01:42→21:00)
[2019-09-30 02:00] VITALS: BP 103/53
[2019-09-30 05:37] LABS: BASOPHILS % (AUTO) 0.7 % (0-1); EOSINOPHILS # (AUTO) 0.1 X10'3 (0-0.9); EOSINOPHILS % (AUTO) 2.4 % (0-6); HEMATOCRIT 31.7 % (35.0-45.0); HEMOGLOBIN 10.7 g/dl (12.0-16.0); LYMPHOCYTES # (AUTO) 1.1 X10'3 (1.1-4.8); LYMPHOCYTES % (AUTO) 25.8 % (21-51); MEAN CORPUSCULAR HEMOGLOBIN 30.7 PG (27.0-31.0); MEAN CORPUSCULAR HGB CONC 33.6 g/dL (33.0-36.5); MEAN CORPUSCULAR VOLUME 91.4 FL (78-98); MONOCYTES # (AUTO) 0.3 X10'3 (0-0.9); MONOCYTES % (AUTO) 8.2 % (2-12); NEUTROPHILS # (AUTO) 2.7 X10'3 (1.8-7.7); NEUTROPHILS % (AUTO) 62.9 % (42-75); PLATELET COUNT 219 X10'3 (140-440); RED BLOOD COUNT 3.47 X10'6 (4.20-5.60); RED CELL DISTRIBUTION WIDTH 19.1 % (11.5-14.5); WHITE BLOOD COUNT 4.3 X10'3 (4.5-11.0)
[2019-09-30 05:43] LABS: ALANINE AMINOTRANSFERASE 152 U/L (12-78); ALBUMIN 3.2 G/DL (3.4-5.0); ALBUMIN/GLOBULIN RATIO 0.7 (1.1-1.5); ALKALINE PHOSPHATASE 230 IU/L (46-116); AMYLASE 18 U/L (25-115); ANION GAP 10 (8-16); ASPARTATE AMINO TRANSFERASE 305 U/L (10-37); BILIRUBIN,TOTAL 1.7 MG/DL (0.1-1.0); BLOOD UREA NITROGEN 2 MG/DL (7-18); BUN/CREATININE RATIO 2.9 (6.6-38.0); CHLORIDE 98 MMOL/L (99-107); CREATININE 0.68 MG/DL (0.40-0.90); GLUCOSE 310 MG/DL (70-104); LIPASE < 50 U/L (73-393); POTASSIUM 3.1 MMOL/L (3.5-5.1); SODIUM 138 MMOL/L (135-145); TOTAL CARBON DIOXIDE 29.7 MMOL/L (24-32); TOTAL PROTEIN 7.7 G/DL (6.4-8.2); eGFR > 90 ML/MIN
[2019-09-30 06:00] VITALS: BP 110/61
--- NOTE | 2019-09-30 06:14 | NUR ---
Problems reprioritized. Patient report given, questions answered & plan of care reviewed with Urszula SANTOS.
--- NOTE | 2019-09-30 06:33 | NUR ---
Patient in room PCU 3024. I have received report from DANIELLE Guallpa and had the opportunity to ask questions and assume patient care.
[2019-09-30] MEDS ORDERED: THIAMINE IV SCH (08:00)
[2019-09-30] MEDS ORDERED: FOLIC ACID IV SCH (08:00)
[2019-09-30] MEDS ORDERED: NORMAL SALINE IV SCH (08:00)
[2019-09-30] MEDS ORDERED: MVI, adult No.4 with vit. K 10 ML in dextrose 5% water 500ml 500 ML IV SCH ×2 (08:00)
[2019-09-30] MEDS ORDERED: enoxaparin 40mg/0.4ml syringe SQ SCH (08:00)
[2019-09-30 08:40] LABS: ANISOCYTOSIS 2+; PLATELET ESTIMATE NORMAL; STOMATOCYTES 2+
[2019-09-30 08:41] LABS: POLYCHROMASIA FEW
[2019-09-30] MEDS: ferrous sulfate 325mg tablet PO SCH ×2 (08:47→20:36)
[2019-09-30] MEDS: potassium Cl 20 mEq SR tablet PO PRN ×3 (08:47→20:39)
[2019-09-30] MEDS: pantoprazole 40mg Tablet.DR PO SCH (08:47)
[2019-09-30] MEDS: lurasidone 60mg tablet PO SCH (08:47)
[2019-09-30] MEDS: gabapentin 300mg capsule PO SCH ×4 (08:47→20:37)
[2019-09-30] MEDS: naltrexone 50mg tablet PO SCH (08:48)
[2019-09-30] MEDS: insulin Lispro (HumaLOG) vial - multi-dose SQ SCH ×4 (08:56→23:09)
[2019-09-30] MEDS: K and/or MAG REPLACEMENT MC SCH ×2 (09:00→20:00)
[2019-09-30] MEDS ORDERED: CefTRIAXone/D5W-Rocephin 1gm 50 ML IV SCH (09:10)
[2019-09-30] MEDS ORDERED: pneumococcal 23-VAL P-sac vacc 25 mcg/0.5ml vial IMVAC ONE (10:00)
[2019-09-30] MEDS: thiamine 100mg tablet PO SCH (10:00)
[2019-09-30] MEDS: folic acid 1mg tablet PO SCH (10:00)
[2019-09-30] MEDS: multivitamins, therapeutics tablet PO SCH (10:00)
[2019-09-30 11:00] VITALS: BP 108/66
--- NOTE | 2019-09-30 14:42 | NUR ---
Malnutrition/DM Consults: Pt admit w/ severe abdominal pain DX transaminitis and possible esophageal varices secondary to heavy etoh hx per MD note. Receiving thiamin/folic/MVI for etoh hx. Pt NPO pending EGD today. Hx T2DM A1C 9.2 down from 10.05 May 2019. Pt seen by RD for written/verbal DM ed w/ RD contact information provided. Pt reports checks GLU 1-3x daily and takes basaglar HS as well as recently started on short-acting DM medication for GLU coverage. RD reviewed adequate hydration methods, educated pt on etoh effects w/ DM, and encouraged pt to attend CDE course. Pt has no visible muscle/fat wasting, normal strength, and no accurate wt hx. At this time does not meet minimum malnutrition criteria. Will continue to monitor. Addendum: 09/30/19 at [address] Amended: Links added.
[2019-09-30 15:00] VITALS: BP 117/70
[2019-09-30] MEDS: octreotide inj. 1,250 MCG in normal saline 250ml IV soln 250 ML IV SCH (16:19)
--- NOTE | 2019-09-30 18:30 | NUR ---
Problems reprioritized. Patient report given, questions answered & plan of care reviewed with DANIELLE Lindo. All patient needs met at this time.
[2019-09-30 19:00] VITALS: BP 124/84
[2019-09-30] MEDS: haloperidol 5mg tablet PO SCH (20:36)
[2019-09-30] MEDS: insulin glargine (Lantus) pen - multi-dose SQ SCH ×2 (21:00→23:07)
[2019-09-30 23:00] VITALS: BP 101/64
[2019-10-01] VITALS (12 sets, daily range): BP systolic 106–155; BP diastolic 55–85
[2019-10-01] MEDS: pantoprazole 40MG/NS 100ML BAG 100 ML IV SCH ×3 (03:15→12:23)
--- NOTE | 2019-10-01 06:30 | NUR ---
Patient in room PCU 3024. I have received report from DANIELLE Lindo and had the opportunity to ask questions and assume patient care.
--- NOTE | 2019-10-01 07:03 | NUR ---
Patient in room PCU 3024. I have received report from Belgica SANTOS, and had the opportunity to ask questions and assume patient care.
[2019-10-01] MEDS: folic acid 1mg tablet PO SCH (08:36)
[2019-10-01] MEDS: multivitamins, therapeutics tablet PO SCH (08:36)
[2019-10-01] MEDS: gabapentin 300mg capsule PO SCH ×4 (08:36→20:05)
[2019-10-01] MEDS: insulin Lispro (HumaLOG) vial - multi-dose SQ SCH ×3 (08:36→21:38)
[2019-10-01] MEDS: ferrous sulfate 325mg tablet PO SCH ×2 (08:37→20:04)
[2019-10-01] MEDS: pantoprazole 40mg Tablet.DR PO SCH (08:37)
[2019-10-01] MEDS: thiamine 100mg tablet PO SCH (08:37)
[2019-10-01] MEDS: lurasidone 60mg tablet PO SCH (08:37)
[2019-10-01] MEDS: naltrexone 50mg tablet PO SCH (08:39)
[2019-10-01] MEDS: K and/or MAG REPLACEMENT MC SCH ×2 (08:55→19:41)
[2019-10-01 09:39] LABS: BASOPHILS % (AUTO) 1.1 % (0-1); EOSINOPHILS % (AUTO) 3.2 % (0-6); HEMATOCRIT 32.7 % (35.0-45.0); HEMOGLOBIN 10.7 g/dl (12.0-16.0); MEAN CORPUSCULAR HGB CONC 32.6 g/dL (33.0-36.5); MEAN CORPUSCULAR VOLUME 92.1 FL (78-98); MEAN PLATELET VOLUME 7.2 FL (7.4-10.4); MONOCYTES % (AUTO) 8.8 % (2-12); NEUTROPHILS # (AUTO) 2.1 X10'3 (1.8-7.7); NEUTROPHILS % (AUTO) 60.9 % (42-75); PLATELET COUNT 205 X10'3 (140-440); RED BLOOD COUNT 3.55 X10'6 (4.20-5.60); WHITE BLOOD COUNT 3.5 X10'3 (4.5-11.0)
[2019-10-01 09:40] LABS: EOSINOPHILS # (AUTO) 0.1 X10'3 (0-0.9); LYMPHOCYTES # (AUTO) 0.9 X10'3 (1.1-4.8); MONOCYTES # (AUTO) 0.3 X10'3 (0-0.9)
[2019-10-01 09:52] LABS: ALANINE AMINOTRANSFERASE 155 U/L (12-78); ALBUMIN/GLOBULIN RATIO 0.7 (1.1-1.5); ALKALINE PHOSPHATASE 223 IU/L (46-116); AMYLASE 24 U/L (25-115); ANION GAP 9 (8-16); ASPARTATE AMINO TRANSFERASE 323 U/L (10-37); BILIRUBIN,TOTAL 1.2 MG/DL (0.1-1.0); BLOOD UREA NITROGEN 1 MG/DL (7-18); BUN/CREATININE RATIO 1.5 (6.6-38.0); CHLORIDE 105 MMOL/L (99-107); CREATININE 0.65 MG/DL (0.40-0.90); GLUCOSE 281 MG/DL (70-104); LIPASE < 50 U/L (73-393); MAGNESIUM 1.8 MG/DL (1.5-2.4); PHOSPHORUS 2.6 MG/DL (2.3-4.5); POTASSIUM 3.8 MMOL/L (3.5-5.1); SODIUM 143 MMOL/L (135-145); TOTAL CARBON DIOXIDE 28.6 MMOL/L (24-32); TOTAL PROTEIN 7.4 G/DL (6.4-8.2); eGFR > 90 ML/MIN
[2019-10-01 10:30] LABS: ANISOCYTOSIS 2+; PLATELET ESTIMATE NORMAL; STOMATOCYTES 1+
[2019-10-01 10:32] LABS: HYPOCHROMASIA 1+; POLYCHROMASIA FEW
[2019-10-01] MEDS ORDERED: fentaNYL/PF 50MCG/1 ML 2ML syringe ONE (14:22)
[2019-10-01] MEDS ORDERED: LIDOcaine Viscous 15ml cup ONE (14:22)
[2019-10-01] MEDS ORDERED: MIDAZolam 5mg/5ml vial ONE (14:22)
[2019-10-01] MEDS: octreotide inj. 1,250 MCG in normal saline 250ml IV soln 250 ML IV SCH (16:29)
--- NOTE | 2019-10-01 17:01 | NUR ---
Irma med request... Gastric emptying study tomorrow, NPO midnight, silverio palmer opiates Addendum: 10/01/19 at 1703 by Robert Caraballo RN Hold Lucie Addendum: 10/01/19 at 1703 by Robert Caraballo RN Silverio Mike
--- NOTE | 2019-10-01 18:30 | NUR ---
[place] documentation: I have reviewed and agree with all interventions, assessments performed and documented by Robert Maria RN.
--- NOTE | 2019-10-01 18:30 | NUR ---
Problems reprioritized. Patient report given, questions answered & plan of care reviewed with DANIELLE Huntley.
--- NOTE | 2019-10-01 18:30 | NUR ---
[place] Medication Administration: For this medication-pass time frame, all medication were reviewed, dispensed, administered and documented per hospital policy by Robert Maria RN.
--- NOTE | 2019-10-01 18:33 | NUR ---
Problems reprioritized. Patient report given, questions answered & plan of care reviewed with Audi SANTOS.
[2019-10-01] MEDS: metoclopramide 5 mg/ml inj IV SCH (19:41)
[2019-10-01] MEDS: haloperidol 5mg tablet PO SCH (20:04)
[2019-10-01] MEDS: pantoprazole 40 MG vial IV SCH (20:05)
[2019-10-01] MEDS: insulin glargine (Lantus) pen - multi-dose SQ SCH (21:40)
[2019-10-02] MEDS: metoclopramide 5 mg/ml inj IV SCH ×2 (01:48→08:00)
[2019-10-02 02:00] VITALS: BP 105/62
[2019-10-02 05:34] LABS: BASOPHILS % (AUTO) 1.1 % (0-1); EOSINOPHILS # (AUTO) 0.2 X10'3 (0-0.9); EOSINOPHILS % (AUTO) 4.1 % (0-6); HEMATOCRIT 32.4 % (35.0-45.0); HEMOGLOBIN 10.9 g/dl (12.0-16.0); LYMPHOCYTES # (AUTO) 1.1 X10'3 (1.1-4.8); LYMPHOCYTES % (AUTO) 28.5 % (21-51); MEAN CORPUSCULAR HEMOGLOBIN 30.9 PG (27.0-31.0); MEAN CORPUSCULAR HGB CONC 33.6 g/dL (33.0-36.5); MONOCYTES # (AUTO) 0.3 X10'3 (0-0.9); MONOCYTES % (AUTO) 8.7 % (2-12); NEUTROPHILS # (AUTO) 2.2 X10'3 (1.8-7.7); NEUTROPHILS % (AUTO) 57.6 % (42-75); PLATELET COUNT 216 X10'3 (140-440); RED BLOOD COUNT 3.52 X10'6 (4.20-5.60); RED CELL DISTRIBUTION WIDTH 18.8 % (11.5-14.5); WHITE BLOOD COUNT 3.9 X10'3 (4.5-11.0)
[2019-10-02 05:50] LABS: ALANINE AMINOTRANSFERASE 131 U/L (12-78); ALBUMIN 2.9 G/DL (3.4-5.0); ALBUMIN/GLOBULIN RATIO 0.7 (1.1-1.5); ALKALINE PHOSPHATASE 212 IU/L (46-116); AMYLASE 35 U/L (25-115); ANION GAP 7 (8-16); ASPARTATE AMINO TRANSFERASE 212 U/L (10-37); BILIRUBIN,TOTAL 0.9 MG/DL (0.1-1.0); BLOOD UREA NITROGEN 2 MG/DL (7-18); BUN/CREATININE RATIO 3.3 (6.6-38.0); CALCIUM 8.2 MG/DL (8.5-10.1); CHLORIDE 106 MMOL/L (99-107); GLUCOSE 192 MG/DL (70-104); LIPASE < 50 U/L (73-393); MAGNESIUM 1.8 MG/DL (1.5-2.4); POTASSIUM 3.1 MMOL/L (3.5-5.1); SODIUM 143 MMOL/L (135-145); TOTAL CARBON DIOXIDE 29.6 MMOL/L (24-32); TOTAL PROTEIN 7.3 G/DL (6.4-8.2); eGFR > 90 ML/MIN
[2019-10-02 06:00] VITALS: BP 128/88
--- NOTE | 2019-10-02 06:04 | NUR ---
Patient in room PCU 3024. I have received report from DANIELLE Huntley and had the opportunity to ask questions and assume patient care.
[2019-10-02] MEDS: gabapentin 300mg capsule PO SCH ×2 (08:00→13:24)
[2019-10-02] MEDS: K and/or MAG REPLACEMENT MC SCH (08:00)
[2019-10-02 11:00] VITALS: BP 135/85
[2019-10-02] MEDS: pantoprazole 40mg Tablet.DR PO SCH (13:24)
[2019-10-02] MEDS: multivitamins, therapeutics tablet PO SCH (13:24)
[2019-10-02] MEDS: potassium Cl 20 mEq SR tablet PO PRN (13:24)
[2019-10-02] MEDS: thiamine 100mg tablet PO SCH (13:25)
[2019-10-02] MEDS: ferrous sulfate 325mg tablet PO SCH (13:25)
[2019-10-02] MEDS: folic acid 1mg tablet PO SCH (13:25)
[2019-10-02] MEDS: naltrexone 50mg tablet PO SCH (13:25)
[2019-10-02] MEDS: pantoprazole 40 MG vial IV SCH (13:25)
[2019-10-02] MEDS: lurasidone 60mg tablet PO SCH (13:25)
[2019-10-02] MEDS: insulin Lispro (HumaLOG) vial - multi-dose SQ SCH (13:38)
--- NOTE | 2019-10-02 13:43 | NUR ---
Paged Dr Palomares PAGER ID: [phone] MESSAGE: Re: NettlesOlivia triplett [id number] Gastric emptying study is resulted. Pt stated she needs to be discharged by 3 because of ride situation. Thanks Urszula [phone]
[2019-10-02] MEDS ORDERED: MULT-1179 PO (14:41)
[2019-10-02] MEDS ORDERED: folic acid tablet PO (14:41)
[2019-10-02] MEDS ORDERED: ONDA4TAB6 PO (14:41)
[2019-10-02] MEDS ORDERED: thiamine tablet PO (14:41)
[2019-10-02] MEDS ORDERED: METO5TAB85 PO (14:41)
--- NOTE | 2019-10-02 16:01 | NUR ---
Patient stable for discharge per MD orders. All instructions were given, questions were answered. All belongings were collected and sent with patient. Two PIV's discontinued, no complications, cannula intact. Tele monitor discontinued, telephone recorder notified. New prescriptions were called into [facility] [place]. Patient will call primary care provider for follow up in one week. I accompanied and walked patient to [place] where her brother picked her up with his personal vehicle.
[2019-10-06 16:50] LABS: OCCULT BLOOD STOOL POSITIVE (Neg)
== END 2019-10-02 16:14 | disposition home or self-care (01) | DRG 253 ==
LOC: ER 10:57 → ED HOLD 17:23 → PCU 3S 20:45
PROVIDERS: ADMIT Family Medicine; ATTEND Internal Medicine
PROC: 3E0234Z Introduction of Serum, Toxoid and Vaccine into Muscle, Percutaneous Approach (ICD-10-PCS; 2019-09-30)
PROC: 0DJ08ZZ Inspection of Upper Intestinal Tract, Via Natural or Artificial Opening Endoscopic (ICD-10-PCS; principal; 2019-10-01)
PROC: CD1YYZZ Planar Nuclear Medicine Imaging of Digestive System using Other Radionuclide (ICD-10-PCS; 2019-10-02)
DX: K92.0 Hematemesis (principal); E11.65 Type 2 diabetes mellitus with hyperglycemia; N39.0 Urinary tract infection, site not specified; K52.9 Noninfective gastroenteritis and colitis, unspecified; R74.0 Nonspecific elevation of levels of transaminase and lactic acid dehydrogenase [LDH]; F10.20 Alcohol dependence, uncomplicated; F15.90 Other stimulant use, unspecified, uncomplicated; K20.9 Esophagitis, unspecified; E87.6 Hypokalemia; I10 Essential (primary) hypertension; Z79.4 Long term (current) use of insulin; Z23 Encounter for immunization; Z88.5 Allergy status to narcotic agent; Z79.899 Other long term (current) drug therapy; Z90.49 Acquired absence of other specified parts of digestive tract
CPT/HCPCS: 36415; 43235; 71045; 74176; 76937; 78264; 80053; 80320; 81001; 81025; 82150; 82272; 82948; 83036; 83605; 83690; 83735; 84100; 85025; 85610; 86885; 86900; 86901; 87040; 87081; 87088; 90732; 92508; 92616; 93005; 97116; 97161; 97530; 99152; A4620; A9541; C9113; G0378; J0696; J1815; J2250; J2354; J2405; J3010; J3411; J3475; J3480; J7030; J7040; J7050; Q9967